=== PATIENT | female | born 1985 | race Caucasian/White ===

== ENCOUNTER → 2024-06-26 15:02 | Outpatient (REF) | payer BC, OTHER, SELFPAY ==
[2024-06-26 16:21] LABS: IgA 465 mg/dl (70-400)
[2024-06-26 16:43] LABS: TSH Reflex To Free T4 1.38 uIU/ml (0.47-4.68)
== END ==
LOC: REG 15:02
PROVIDERS: ATTENDING PHYSICIAN Internal Medicine; FAMILY PHYSICIAN Family Medicine
DX: R19.8 Other specified symptoms and signs involving the digestive system and abdomen (principal); K59.09 Other constipation
CPT/HCPCS: 36415; 82784; 83516; 84443; 86141

== ENCOUNTER 2024-07-22 09:43 | Emergency (ER) | payer BC, OTHER, SELFPAY ==
[2024-07-22 09:57] VITALS: BP 132/78
--- NOTE | 2024-07-22 11:02 | ED.GENMED ---
History of Present Illness
General
Chief Complaint: Breathing Problem
Source: patient
Exam Limitations: none
Time Seen by Provider: 07/22/24 10:56
History of Present Illness
History of Present Illness:
38-year-old female with history of asthma presents complaining of 2 to 3 weeks worth of progressively worsening dyspnea chest tightness wheezing cough. The cough is nonproductive. She has been seen by the family doctor as well as urgent care. She
received an injection of steroid as well as did not pack of steroids. She is increased her nebulizer usage without relief. No fevers. She was tested negative for COVID and flu. No recent travel or surgery. No leg swelling or calf pain. She
denies hemoptysis. No known sick contacts.
Phy Exam
Physical Exam
Physical Exam:
General: Well-appearing female with cough throughout the exam
HEENT: Normocephalic atraumatic
Heart: Regular rate and rhythm
Lungs: Expiratory wheeze bilaterally
Extremities: No cyanosis or edema
Skin is warm no rash
Course
Orders/Labs/Results
Orders:
Orders
07/22/24 11:01
Ipratropium/Albuterol Sulfate [Duoneb] 3 ml INH R NOW STA
07/22/24 11:02
CR Chest - 2 Views Urgent
Comment:
Reason For Exam: cough, sob
07/22/24 11:15
Ipratropium/Albuterol Sulfate [Duoneb] 3 ml .ROUTE .STK-MED ONE
07/22/24 11:20
Complete Blood Count/With Diff Urgent
Comprehensive Metabolic Panel Urgent
D-Dimer Urgent
07/22/24 13:01
Dexamethasone Sod Phosphate [Decadron] 10 mg IV NOW STA
Ipratropium/Albuterol Sulfate [Duoneb] 3 ml INH R NOW STA
Abnormal Lab Results
07/22/24
11:20
WBC 12.3 H 10^3/uL
(4.8-10.8)
MCHC 32.8 L g/dL
(33.0-37.0)
RDW 14.7 H %
(11.5-14.5)
Abs Immat Gran (auto) 0.1 H 10^3/uL
(0-0.05)
Absolute Neuts (auto) 10.9 H 10^3/uL
(1.4-6.5)
Absolute Lymphs (auto) 1.0 L 10^3/uL
(1.2-3.4)
Immature Gran % 0.7 H %
(0-0.5)
Neutrophils % 88.5 H %
(42.2-75.2)
Lymphocytes % 7.7 L %
(20.5-51.1)
Glucose 138 H mg/dl
(70-99)
07/22/24 11:20
07/22/24 11:20
Vital Signs
Initial and Last Documented VS:
Initial Vital Signs
Temp Pulse Resp BP Pulse Ox
98.8 F 87 22 132/78 97
07/22/24 09:57 07/22/24 09:57 07/22/24 09:57 07/22/24 09:57 07/22/24 09:57
Last Documented Vital Signs
Temp Pulse Resp BP Pulse Ox
98.8 F 91 17 138/88 98
07/22/24 09:57 07/22/24 14:54 07/22/24 14:54 07/22/24 14:54 07/22/24 14:54
MDM/Problems Addressed
Differential Diagnosis Includes:
Cough wheeze shortness of breath. Consider asthma versus bronchitis. Will do x-ray to evaluate for pneumonia. D-dimer pending secondary to shortness of breath.
Will treat symptoms with DuoNeb and Decadron. Basic labs pending as well
*Critical Care Note
Total Time (30-74mins, 75-104mins- exclusive of procedures): Not Applicable
Update Note
Update Note:
Patient feeling better after nebulizer treatment. Chest x-ray was clear. Acute bronchitis versus asthma flare. Given prolonged period of time with cough will add antibiotics, steroid and DuoNeb treatments at home. No indication for admission.
ED Attending Note
-
Portions of this chart may have been created with voice recognition software.� Occasional wrong word or��sound alike� substitutions may have occurred due to the inherent limitations of voice recognition software.
Discharge Plan
Departure
Patient Disposition: Home (Routine Discharge)
Date of Disposition: 07/22/24
Time of Disposition: 14:57
Patient with high blood pressure during this ER visit?: No
Discharge Problem:
Acute bronchitis
Instructions: Acute Bronchitis, Adult (DC)
Prescriptions:
New
ipratropium-albuterol 0.5 mg-3 mg(2.5 mg base)/3 mL solution for nebulization
3 ml inhalation QID PRN (Reason: wheezing) Qty: 90 0RF
prednisone 20 mg tablet
40 mg PO DAILY 5 Days Qty: 10 0RF
doxycycline hyclate 100 mg capsule
100 mg PO BID Qty: 14 0RF
Referrals:
Wilfredo Patel MD [Family Provider] -
Activity Restrictions/Additional Instructions:
Take antibiotics as directed. Take steroid as directed. Use nebulizer as needed peer return if worse otherwise follow-up with your doctor
Interventions
Interventions:
*Risk Screen - Suicide Last Done: 07/22/24 09:57
*General Assessment Last Done: 07/22/24 09:57
*Neglect/Abuse Screening Last Done: 07/22/24 09:57
*ED COVID-19 Vaccine History Last Done: 07/22/24 11:18
ED- Cardiac Assessment Last Done: 07/22/24 11:18
ED- Pulmonary Assessment Last Done: 07/22/24 11:18
Discharge Date and Time
Print Language: MONTSERRATIAN
[2024-07-22] MEDS: DUONEB 3 ML INH ×2 (11:17→13:05)
[2024-07-22 11:18] VITALS: BP 122/68; BMI 39.3
[2024-07-22 11:34] LABS: % Basophils 0.3 % (0-2); % Immature Granulocytes 0.7 % (0-0.5); % Lymphocytes 7.7 % (20.5-51.1); % Monocytes 2.8 % (1.7-9.3); % Neutrophils 88.5 % (42.2-75.2); Absolute Immature Granulocytes 0.1 10^3/uL (0-0.05); Absolute Monocytes 0.4 10^3/uL (0.1-0.6); Absolute Neutrophils 10.9 10^3/uL (1.4-6.5); Hemoglobin 13.1 g/dL (12.0-16.0); Mean Corp Hgb Conc. 32.8 g/dL (33.0-37.0); Mean Corpuscular Hgb 27.8 pg (27.0-31.0); Mean Corpuscular Volume 84.9 fL (81.0-99.0); Mean Platelet Volume 9.6 fL (7.4-10.4); Nucleated Red Blood Cells % 0 %; Platelet Count 390 10^3/uL (130-400); Red Blood Cell Count 4.71 10^6/uL (4.20-5.40); Red Cell Dist. Width 14.7 % (11.5-14.5); White Blood Cell Count 12.3 10^3/uL (4.8-10.8)
[2024-07-22 11:47] LABS: D-Dimer 0.29 ug/mlFEU (0.00-0.50)
[2024-07-22 11:50] LABS: ALT (SGPT) 22 U/L (0-35); AST (SGOT) 18 U/L (14-36); Albumin 4.1 g/dl (3.5-5.0); Alkaline Phosphatase 95 U/L (38-126); Blood Urea Nitrogen 8 mg/dl (7-17); Calcium 8.9 mg/dl (8.4-10.2); Carbon Dioxide 25 mmol/L (22-30); Chloride 102 mmol/L (98-107); Estimated Creatinine Clearance > 125 ml/min; Glucose 138 mg/dl (70-99); Potassium 4.4 mmol/L (3.5-5.1); Sodium 137 mmol/L (135-145); Total Bilirubin 0.4 mg/dl (0.2-1.3); Total Protein 7.4 g/dl (6.3-8.2); eGFR > 60.00
[2024-07-22] MEDS: DECADRON 10 MG IV (13:05)
[2024-07-22 14:54] VITALS: BP 138/88
== END 2024-07-22 15:20 | disposition home or self-care (01) ==
LOC: EMR 09:43
PROVIDERS: Physician Assistant; EMERGENCY PHYSICIAN Emergency Medicine; FAMILY PHYSICIAN Family Medicine
DX: J20.9 Acute bronchitis, unspecified (principal); J45.909 Unspecified asthma, uncomplicated; Z88.1 Allergy status to other antibiotic agents; Z88.8 Allergy status to other drugs, medicaments and biological substances
CPT/HCPCS: 99284; 96374; 94640 ×2; 71046; 80053; 85025; 85379

== ENCOUNTER → 2024-09-29 09:22 | Outpatient (REF) | payer BC, OTHER, SELFPAY | LOC: RAD 09:22 | PROVIDERS: ATTENDING PHYSICIAN Physician Assistant; FAMILY PHYSICIAN Family Medicine | DX: R19.8 Other specified symptoms and signs involving the digestive system and abdomen (principal) | CPT/HCPCS: 74018 ==

== ENCOUNTER 2024-10-28 06:27 | Day surgery (SDC) | payer BC, OTHER, SELFPAY | END 2024-10-28 14:25 | disposition home or self-care (01) | LOC: GI 06:27 | PROVIDERS: ATTENDING PHYSICIAN Internal Medicine; FAMILY PHYSICIAN Family Medicine | DX: K52.9 Noninfective gastroenteritis and colitis, unspecified (principal); R19.4 Change in bowel habit; K64.8 Other hemorrhoids; R13.10 Dysphagia, unspecified; R14.0 Abdominal distension (gaseous); K22.89 Other specified disease of esophagus; K31.89 Other diseases of stomach and duodenum; Q40.2 Other specified congenital malformations of stomach; K29.50 Unspecified chronic gastritis without bleeding; K20.80 Other esophagitis without bleeding | CPT/HCPCS: 45380; 43239; 88305; 88342 ==

== ENCOUNTER 2025-04-21 11:40 | Emergency (ER) | payer BC, SELFPAY ==
[2025-04-21 11:43] VITALS: BP 133/96
[2025-04-21 11:52] VITALS: BP 113/79
[2025-04-21 12:00] VITALS: BP 114/89
[2025-04-21 12:49] VITALS: BMI 41.1
[2025-04-21 13:00] VITALS: BP 116/74
[2025-04-21 13:08] LABS: Hematocrit 41.9 % (37.0-47.0); Hemoglobin 13.9 g/dL (12.0-16.0); Mean Corp Hgb Conc. 33.2 g/dL (33.0-37.0); Mean Corpuscular Volume 83.8 fL (81.0-99.0); Nucleated Red Blood Cells % 0 %; Platelet Count 330 10^3/uL (130-400); Red Cell Dist. Width 13.4 % (11.5-14.5)
[2025-04-21 13:29] LABS: ALT (SGPT) 19 U/L (0-35); AST (SGOT) 17 U/L (14-36); Albumin 4.2 g/dl (3.5-5.0); Alkaline Phosphatase 98 U/L (38-126); Blood Urea Nitrogen 12 mg/dl (7-17); Calcium 9.2 mg/dl (8.4-10.2); Carbon Dioxide 26 mmol/L (22-30); Chloride 107 mmol/L (98-107); Estimated Creatinine Clearance 100 ml/min; Glucose 96 mg/dl (70-99); Potassium 4.5 mmol/L (3.5-5.1); Sodium 138 mmol/L (135-145); Total Protein 7.5 g/dl (6.3-8.2); eGFR > 60.00
--- NOTE | 2025-04-21 13:43 | ED.GENMED ---
History of Present Illness
General
Chief Complaint: Blood Pressure Problem
Source: patient
Exam Limitations: none
Time Seen by Provider: 04/21/25 12:20
Nursing documentation reviewed up to this point in time: agreed with
History of Present Illness
History of Present Illness:
39-year-old female past medical history of hypertension, GERD presenting to the emergency department today with concerns of elevated blood pressure over the past 3 days with maximum blood pressure in the 140s. Denies any specific chest pain
shortness of breath has felt some fatigue.
Review of Systems
Review of Systems
Allergies reviewed?: Yes
All Other Systems: ROS reviewed and negative except as documented in HPI and ROS
Phy Exam
Physical Exam
Physical Exam:
GENERAL: Alert , in no apparent distress
EYE: pupils equal and reactive
NECK: Supple, no significant adenopathy.
ENT: o/p clr, mmm.
CARDIAC: Regular rate and rhythm .
LUNGS: Clear breath sounds bilaterally, no acute respiratory distress, no wheezes/rales/rhonchi
ABDOMEN: Soft, without focal tenderness, no r/g, no cvat
NEUROLOGICAL: Alert and oriented, no focal neuro deficits
SKIN: Warm and dry, skin intact.
MUSCULOSKELETAL: No edema, well perfused.
PSYCH: Normal and appropriate interaction.
Course
Orders/Labs/Results
Orders:
Orders
04/21/25 11:45
EKG [Electrocardiogram (*1)] Urgent
Reason for Study: Shortness of Breath
EKG- Treatment ONCE
04/21/25 12:50
CBC/With Diff [Complete Blood Count/With Diff] Urgent
CMP [Comprehensive Metabolic Panel] Urgent
04/21/25 12:50
04/21/25 12:50
Vital Signs
Initial and Last Documented VS:
Initial Vital Signs
Temp Pulse Resp BP Pulse Ox
98.3 F 119 18 133/96 99
04/21/25 11:43 04/21/25 11:43 04/21/25 11:43 04/21/25 11:43 04/21/25 11:43
Last Documented Vital Signs
Temp Pulse Resp BP Pulse Ox
98.3 F 81 15 114/89 97
04/21/25 11:43 04/21/25 12:15 04/21/25 12:15 04/21/25 12:00 04/21/25 12:40
MDM/Problems Addressed
MDM/Problems Addressed:
39-year-old female presenting with concerns of high blood pressure. Here blood pressure in normal range patient no distress vital signs normal labs unremarkable patient advised for close outpatient follow-up with her domestic housekeeper for management.
Return precautions given.
*Pulse Oximetry
SaO2: 97
Oxygen Mode of Delivery: Room air
Patient hypoxic: no (97)
*Critical Care Note
Total Time (30-74mins, 75-104mins- exclusive of procedures): Not Applicable
ED Attending Note
-
Portions of this chart may have been created with voice recognition software.� Occasional wrong word or��sound alike� substitutions may have occurred due to the inherent limitations of voice recognition software.
Discharge Plan
Departure
Patient Disposition: Home (Routine Discharge)
Date of Disposition: 04/21/25
Time of Disposition: 13:50
Patient with high blood pressure during this ER visit?: No
Condition: Good
Covid-19: Not Applicable
Discharge Problem:
Fluctuating blood pressure
Instructions: BLOOD PRESSURE
Prescriptions:
No Action
ipratropium-albuterol 0.5 mg-3 mg(2.5 mg base)/3 mL solution for nebulization
3 ml inhalation QID PRN (Reason: wheezing) Qty: 90 0RF
prednisone 20 mg tablet
40 mg PO DAILY 5 Days Qty: 10 0RF
doxycycline hyclate 100 mg capsule
100 mg PO BID Qty: 14 0RF
Referrals:
Wilfredo Patel MD [Family Provider, [facility]]
Activity Restrictions/Additional Instructions:
You came to the emergency department today with concerns of blood pressure abnormalities. Please follow closely with your primary care doctor and domestic housekeeper about this. Return for any worsening, new or concerning symptoms.
Interventions
Interventions:
*Risk Screen - Suicide Last Done: 04/21/25 11:45
*General Assessment Last Done: 04/21/25 11:45
*Neglect/Abuse Screening Last Done: 04/21/25 11:45
*ED COVID-19 Vaccine History Last Done: 04/21/25 11:45
*ED Influenza Vaccine History Last Done: 04/21/25 11:45
ED- Cardiac Assessment Last Done: 04/21/25 12:40
ED- Neurological Assessment Last Done: 04/21/25 12:40
ED- Pulmonary Assessment Last Done: 04/21/25 12:40
Discharge Date and Time
Print Language: LAO
== END 2025-04-21 14:14 | disposition home or self-care (01) ==
LOC: EMR 11:40
PROVIDERS: Physician Assistant; EMERGENCY PHYSICIAN Student in an Organized Health Care Education/Training Program; FAMILY PHYSICIAN Family Medicine
DX: I10 Essential (primary) hypertension (principal); R53.83 Other fatigue
CPT/HCPCS: 99284; 80053; 85025; 93005